=== PATIENT | female | born 1980 | race African-American/Black ===

== ENCOUNTER 2021-02-08 17:20 | Emergency (ER) | payer BC ==
[~2021-02-08] VITALS: Ht 165.1 cm; Wt 80.3 kg
[2021-02-08] MEDS ORDERED: AMLODIPINE BESY10 MG PO (17:35)
[2021-02-08 17:58] LABS: ABSOLUTE NEUTROPHILS 4.2 thou/uL (1.4-8.2); BASOPHILS 1.2 % (0.0-2.0); EOSINOPHILS 1.8 % (0.0-3.0); HEMATOCRIT 37.9 % (37.0-47.0); MCH 27.2 pg (26.0-34.0); MCHC 31.7 g/dL (28.0-37.0); MCV 85.7 fL (80.0-100.0); MONOCYTES 8.5 % (1.0-8.0); PLATELET COUNT 310 thou/uL (150-400); POLYS 63.5 % (36.0-66.0); RBC 4.42 mil/uL (4.20-5.00); RDW 21.2 % (10.5-14.5); WBC 6.7 thou/uL (4.0-11.0)
[2021-02-08 18:06] LABS: CALCIUM 9.4 mg/dL (8.5-10.1); CREATININE 0.8 mg/dL (0.6-1.0); POTASSIUM 3.6 mmol/L (3.5-5.1)
[2021-02-08 18:16] LABS: TOTAL BILIRUBIN 0.5 mg/dL (0.2-1.0); TOTAL PROTEIN 8.5 g/dL (6.4-8.2)
[2021-02-08] MEDS ORDERED: MEDROL DOSPAK21 TA1 PO (19:04)
[2021-02-08 19:06] VITALS: BP 135/74
--- NOTE | 2021-02-09 07:20 | EKG ---
[address] [address] ELECTROCARDIOGRAM REPORT Name: ANGELO LUJAN Room #: [facility]#: [id number] Admission: 02/08/21 Attend Phys: Discharge: 02/08/21 Date of : 82 Report #: [id number] [facility] ED Test Date: 2021-02-08 Test Time: 17:32:20 Pat Name: ANGELO LUJAN Department: Room: Gender: F Event Marketing Manager: JULIENNE : 1980 Requested By: Magnolia Ruelas Order Number: [id number] MD: Cayden Fry Measurements Intervals [place] Rate: 81 P: 35 UT: 148 QRS: 23 QRSD: 79 T: 21 QT: 364 QTc: 423 Interpretive Statements Sinus rhythm No previous ECG available for comparison Electronically Signed On 02-09-2021 7:20:06 RESEARCH PROGRAMMER by Cayden Fry [email or web address] <ELECTRONICALLY SIGNED> By: Cayden Fry MD, [facility] 02/09/21 0720 1732 1732 Cayden Fry MD, FACC /EPI
== END 2021-02-08 19:16 | disposition home or self-care (01) ==
LOC: ER 17:20
PROVIDERS: Emergency Medicine
DX: M94.0 Chondrocostal junction syndrome [Tietze] (principal); I10 Essential (primary) hypertension; Z79.899 Other long term (current) drug therapy; Z88.6 Allergy status to analgesic agent